=== PATIENT | male | born 1990 | race Caucasian/White ===

== ENCOUNTER → 2019-09-25 15:39 | Outpatient (BNVA) | payer BC, SELFPAY | PROVIDERS: Visit Provider Nurse Practitioner Family | DX: M25.571 Pain in right ankle and joints of right foot (principal) | CPT/HCPCS: 73610 ==

== ENCOUNTER 2020-07-02 13:21 | Outpatient (CLI) | payer BC, SELFPAY ==
[2020-07-02] MEDS: iohexol 300 mg/mL 100 mL Btl IV (14:21)
--- NOTE | 2020-07-02 15:00 | CT_ITS ---
WS: [id number] CT ABDOMEN AND PELVIS WITH CONTRAST HISTORY: R10.9 - Unspecified abdominal pain TECHNIQUE: Imaging performed of the abdomen and pelvis with IV contrast. Single phase imaging of the abdomen. Coronal and sagittal reformats are submitted. All CT scans at [facility] use at least one of these dose optimization techniques: automated exposure control; mA and/or kV adjustment per patient size (includes targeted exams where dose is matched to clinical indication); or iterativ e reconstruction. IV CONTRAST: Omnipaque 300; 95 mL IV. Oral contrast: No DLP: 1159.85 mGycm COMPARISON: 12/29/2016 Lower thorax: Lung bases are clear. Heart is normal size. No hiatal hernia. Liver/biliary system: Normal size with no intrahepatic dilatation. Gallbladder: Normal. No gallstones or wall thickening. No pericholecystic fluid. Pancreas: Normal. Spleen: Normal. Adrenal glands: Normal. Right kidney: Minimally complex cyst in the mid kidney measures 1.7 cm. There is a focal calcificatio n in the wall. Similar to 2017 with only slight enlargement of the cyst. Left kidney: Normal. Aorta: Normal. Lymphadenopathy: None. Free fluid: None. GI tract: Normal appendix. No wall thickening or strictures. No diverticular disease. Abdominal wall: Unremarkable abdominal wall. No hernia. Pelvis: Normal. Bones: Unremarkable. CT/CT abdomen pelvis w con* [id number] IMPRESSION: 1. No acute abnormality within the abdomen or pelvis. 2. Minimally complex cyst RIGHT kidney. 3. No GI tract obstruction or mucosal thickening. 4. Normal appendix.
== END 2020-07-02 13:22 | disposition home or self-care (01) ==
LOC: RADWPI 13:38
PROVIDERS: PCP Nurse Practitioner Family; Visit Provider Nurse Practitioner Family
DX: R10.9 Unspecified abdominal pain (principal); K92.1 Melena; Q61.01 Congenital single renal cyst
CPT/HCPCS: 74177; 80053; 82306; 82607; 84403; 84443; 85025; Q9967

== ENCOUNTER → 2020-07-09 16:04 | Outpatient (BNVA) | payer BC, SELFPAY | PROVIDERS: PCP Nurse Practitioner Family; Visit Provider Nurse Practitioner Family | DX: R53.83 Other fatigue (principal); Z79.899 Other long term (current) drug therapy | CPT/HCPCS: 82270 ==

== ENCOUNTER → 2020-10-21 15:18 | Outpatient (BNVA) | payer BC, SELFPAY | PROVIDERS: PCP Nurse Practitioner Family; Visit Provider Nurse Practitioner Family | DX: Z20.822 Contact with and (suspected) exposure to COVID-19 (principal); J06.9 Acute upper respiratory infection, unspecified | CPT/HCPCS: 87635 ==

== ENCOUNTER → 2021-01-29 10:49 | Outpatient (BNVA) | payer SELFPAY | PROVIDERS: PCP Nurse Practitioner Family; Visit Provider Nurse Practitioner Family | DX: N28.1 Cyst of kidney, acquired (principal); R10.9 Unspecified abdominal pain; R53.83 Other fatigue; N52.9 Male erectile dysfunction, unspecified; Z68.32 Body mass index [BMI] 32.0-32.9, adult; Z77.22 Contact with and (suspected) exposure to environmental tobacco smoke (acute) (chronic) | CPT/HCPCS: 80053; 81000; 82306; 82607; 84403; 84443; 85025 ==

== ENCOUNTER → 2021-03-23 08:09 | Outpatient (BNVA) | payer SELFPAY | PROVIDERS: PCP Nurse Practitioner Family; Visit Provider Urology | DX: N52.9 Male erectile dysfunction, unspecified (principal); N28.1 Cyst of kidney, acquired; R53.83 Other fatigue | CPT/HCPCS: 81003 ==

== ENCOUNTER → 2021-09-21 13:02 | Outpatient (BNVA) | payer SELFPAY | PROVIDERS: PCP Nurse Practitioner Family; Visit Provider Nurse Practitioner Family | DX: R10.9 Unspecified abdominal pain (principal) | CPT/HCPCS: 81003 ==

== ENCOUNTER → 2022-03-15 11:02 | Outpatient (BNVA) | payer OTHER, SELFPAY | PROVIDERS: PCP Nurse Practitioner Family; Visit Provider Nurse Practitioner Family | DX: R53.83 Other fatigue (principal); R79.89 Other specified abnormal findings of blood chemistry; E55.9 Vitamin D deficiency, unspecified; F41.9 Anxiety disorder, unspecified; F32.A Depression, unspecified | CPT/HCPCS: 80053; 80061; 82306; 84402; 84403; 86038; 86140; 86664; 86665 ==

== ENCOUNTER → 2022-08-26 15:58 | Outpatient (BNVA) | payer OTHER, SELFPAY | PROVIDERS: PCP Nurse Practitioner Family; Visit Provider Nurse Practitioner Family | DX: R79.89 Other specified abnormal findings of blood chemistry (principal); F32.A Depression, unspecified; F41.9 Anxiety disorder, unspecified | CPT/HCPCS: 80053; 80061; 84402; 84403 ==

== ENCOUNTER → 2023-02-24 10:29 | Outpatient (BNVA) | payer SELFPAY | PROVIDERS: PCP Nurse Practitioner Family; Visit Provider Nurse Practitioner Family | DX: R86.1 Abnormal level of hormones in specimens from male genital organs (principal); M25.571 Pain in right ankle and joints of right foot; F41.9 Anxiety disorder, unspecified; F32.A Depression, unspecified | CPT/HCPCS: 80053; 80061; 84402; 84403 ==

== ENCOUNTER → 2023-06-28 10:30 | Outpatient (BNVA) | payer SELFPAY | PROVIDERS: PCP Nurse Practitioner Family; Visit Provider Nurse Practitioner Family | DX: R79.89 Other specified abnormal findings of blood chemistry (principal); E55.9 Vitamin D deficiency, unspecified; F41.9 Anxiety disorder, unspecified; F32.A Depression, unspecified | CPT/HCPCS: 80053; 80061; 84402; 84403; 85025 ==

== ENCOUNTER → 2024-01-04 15:56 | Outpatient (BNVA) | payer OTHER, SELFPAY | PROVIDERS: PCP Nurse Practitioner Family; Visit Provider Nurse Practitioner Family | DX: R79.89 Other specified abnormal findings of blood chemistry (principal) | CPT/HCPCS: 80053; 84403; 85025 ==

== ENCOUNTER 2024-12-03 14:15 | Outpatient (CLI) | payer OTHER, SELFPAY ==
--- NOTE | 2024-12-03 14:22 | XR_ITS ---
WS: [id number] Cervical spine, 4 views, 12/03/2024 Clinical Data: M79.89 - Other specified soft tissue disorders Comparison: None. Findings: No compression fractures are seen. There is minimal disc narrowing at C5-C6 with anterior osteophytes. There is no prevertebral soft tissue swelling. The odontoid is unremarkable. The soft tissues of the neck and the lung apices are normal. XR/XR cervical spine 3V* [id number] Impression: Minimal C5-C6 disc narrowing with anterior osteophytes.
== END 2024-12-03 14:16 | disposition home or self-care (01) ==
PROVIDERS: PCP Nurse Practitioner Family; Visit Provider Nurse Practitioner Family
DX: M54.2 Cervicalgia (principal); R20.0 Anesthesia of skin; M25.78 Osteophyte, vertebrae; M48.02 Spinal stenosis, cervical region
CPT/HCPCS: 72040